=== PATIENT | male | born 1990 | race Caucasian/White ===

== ENCOUNTER 2022-07-10 14:35 | Emergency (ER) | payer OTHER ==
[~2022-07-10] VITALS: Ht 175.3 cm; Wt 86.2 kg
[2022-07-10 14:52] VITALS: BP 157/108
--- NOTE | 2022-07-10 14:52 | NUR ---
31 y/o male biba from home, c/o etoh withdrawals for 2 days. 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 c/o head, abd pain 06/21. pt states he fell last night mechanical fall and hit wall, woke up the next morning with nose bleeding. pt has colostomy bag, stool appears green, dark. pt states his stool normally looks like that when he eats blueberries. nose is currently not bleeding at this time. pmh: htn, diverticulitis allergy: bees med: denies
--- NOTE | 2022-07-10 14:52 | NUR ---
Note undone in EDM - 07/10/22 at 1610 by [email or web address] 31 y/o male biba from home, c/o etoh withdrawals for 2 days. 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 c/o head, abd pain 06/21. pt states he fell last night mechanical fall and hit wall, woke up the next morning with nose bleeding. pmh: htn, diverticulitis allergy: bees med: andrea
[2022-07-10] MEDS ORDERED: CLONIDINE HYDROCHLORIDE 0.1 MG TAB PO ONE (14:55)
[2022-07-10] MEDS ORDERED: KETOROLAC 30 MG/ML VIAL IVP ONE (14:55)
[2022-07-10] MEDS ORDERED: ONDANSETRON 4 MG/2 ML VIAL IVP ONE (14:55)
[2022-07-10] MEDS ORDERED: NACL 0.9% 1,000 ML IV ONE ×2 (14:55→16:35)
[2022-07-10] MEDS ORDERED: LORazepam 2 MG/ML VIAL IVP ONE ×4 (14:55→20:25)
[2022-07-10 15:33] LABS: BASOPHILS # (AUTO) 0.1 K/uL (0.00-0.22); BASOPHILS % (AUTO) 2.2 % (0.0-2.0); EOSINOPHILS # (AUTO) 0.1 K/uL (0-0.4); HEMATOCRIT 41.4 % (36-52); HEMOGLOBIN 14.1 g/dL (12.0-18.0); LYMPHOCYTES # (AUTO) 2.6 K/uL (2.0-11.5); LYMPHOCYTES % (AUTO) 47.5 % (20.5-51.1); MEAN CORPUSCULAR HEMOGLOBIN 29 pg (27-31); MEAN CORPUSCULAR HGB CONC 34 g/dL (33-37); MEAN CORPUSCULAR VOLUME 85.5 fL (80-94); MONOCYTES # (AUTO) 0.4 K/uL (0.8-1.0); MONOCYTES % (AUTO) 6.9 % (1.7-9.3); NEUTROPHILS # (AUTO) 2.3 K/uL (1.8-7.7); NEUTROPHILS % (AUTO) 41.4 % (42.2-75.2); PLATELET COUNT (AUTO) 309 K/uL (140-450); RED BLOOD CELL COUNT(AUTO) 4.85 MIL/uL (4.20-6.10); RED CELL DISTRIBUTION WIDTH 16.9 % (11.6-13.7); WHITE BLOOD COUNT (AUTO) 5.5 K/uL (4.8-10.8)
[2022-07-10 15:57] LABS: ALBUMIN 4.1 g/dL (3.4-5.0); ASPARTATE AMINOTRANSFERASE 43 U/L (15-37); CARBON DIOXIDE 22.9 mmol/L (21-32); CHLORIDE 105 mmol/L (98-107); CREATININE 0.8 mg/dL (0.6-1.3); GFR ARICAN-AMERICAN 145 mL/min (>90); GLUCOSE 141 mg/dL (74-106); POTASSIUM 3.9 mmol/L (3.5-5.1); SODIUM SERUM 144 mmol/L (136-145); TOTAL BILIRUBIN 0.7 mg/dL (0.0-1.0); UREA NITROGEN, BLOOD 16 mg/dL (7-18)
[2022-07-10] MEDS ORDERED: FOLIC ACID 5 MG, MULTIVITAMIN-12 10 ML in NACL 0.9% 1,000 ML IV ONE (16:05)
[2022-07-10] MEDS ORDERED: THIAMINE 200 MG/2 ML VIAL IM ONE (16:05)
[2022-07-10] MEDS ORDERED: MAG SULF 2000 MG/WATER PREMIX 50 ML IV ONE (16:05)
[2022-07-10 16:11] LABS: ACETAMINOPHEN < 0.5 ug/ml (10-30); SALICYLATE < 2.8 mg/dL (2.8-20.0)
[2022-07-10] MEDS ORDERED: MORPHINE SULFATE 4 MG/ML SYR IVP ONE (17:05)
[2022-07-10] MEDS ORDERED: METOCLOPRAMIDE 10 MG/2 ML INJ VIAL IVP ONE (17:05)
[2022-07-10] MEDS ORDERED: LORazepam 2 MG/ML VIAL ONE (18:29)
--- NOTE | 2022-07-10 19:21 | NUR ---
Report given to ZAIRA Bhatt for transfer of care.
--- NOTE | 2022-07-10 19:50 | NUR ---
Patient lying in bed, A/Ox4, chest rise and fall symmetrical, no c/o pain or s/s of discomfort, seizure pads/seizure precautions in place, CIWA scale 11, no seizures during shift.
--- NOTE | 2022-07-10 19:51 | NUR ---
Note undone in [facility] - 07/10/22 at 2111 by [id number] Patient lying in bed, A/Ox4, chest rise and fall symmetrical, no c/o pain or s/s of discomfort, seizure pads/seizure precautions in place. Addendum: 07/10/22 at 2101 by [email or web address] Amendment undone in [facility] - 07/10/22 at 2111 by [id number] Patient lying in bed, A/Ox4, chest rise and fall symmetrical, no c/o pain or s/s of discomfort, seizure pads/seizure precautions in place, CIWA scale 11.
--- NOTE | 2022-07-10 20:05 | NUR ---
Patient lying in bed, A/Ox4, chest rise and fall symmetrical, no c/o pain or s/s of discomfort, seizure pads/seizure precautions in place, CIWA scale 11. Addendum: 07/10/22 at 2111 by [email or web address] Patient lying in bed, A/Ox4, chest rise and fall symmetrical, no c/o pain or s/s of discomfort, seizure pads/seizure precautions in place, CIWA scale 11, no seizures during shift.
[2022-07-10 20:48] LABS: BENZODIAZEPINE, URINE POSITIVE ng/mL (NEG <=200); OPIATE, URINE POSITIVE ng/mL (NEG <=2000)
[2022-07-10 20:49] LABS: BARBITURATE, URINE NEGATIVE ng/ml (NEG <=200); CANNABINOID, URINE NEGATIVE ng/mL (NEG <=50); COCAINE, URINE NEGATIVE ng/mL (NEG <=300); PHENCYCLIDINE SCREEN,URINE NEGATIVE ng/mL (NEG <=25)
--- NOTE | 2022-07-10 20:49 | NUR ---
[facility] TRAN[facility]ORT AT BEDSIDE
--- NOTE | 2022-07-10 21:02 | NUR ---
Patient lying in bed, A/Ox4, chest rise and fall symmetrical, no c/o pain or s/s of discomfort, seizure pads/seizure precautions in place, CIWA scale 11. Addendum: 07/10/22 at 2111 by [email or web address] Patient lying in bed, A/Ox4, chest rise and fall symmetrical, no c/o pain or s/s of discomfort, seizure pads/seizure precautions in place, CIWA scale 11, no seizures during shift.
--- NOTE | 2022-07-10 21:03 | NUR ---
Patient to be transferred to [facility]. Is being transferred due to insurance reason. Receiving facility has accepting physician and available space. ER physician has signed transfer form. Patient or responsible alliance party has agreed to transfer and signed form. Patient belongings inventoried and will be sent with patient. Copy of nursing notes, lab reports, EKG, Physicians Orders and X-rays to be sent with patient. Report called to Ned MENESES at receiving facility. [facility] ambulance service has arrived for transfer. [facility] ambulance staff given report. [facility] ambulance staff verbalized understanding of report, no further questions. Addendum: 07/10/22 at 2118 by [email or web address] Patient to be transferred to [facility]. Is being transferred due to insurance reason. Receiving facility has accepting physician and available space. ER physician has signed transfer form. Patient or responsible alliance party has agreed to transfer and signed form. Patient belongings inventoried and will be sent with patient. Copy of nursing notes, lab reports, EKG, Physicians Orders and X-rays to be sent with patient. Report called to Ned MENESES at receiving facility. [facility] ambulance service has arrived for transfer. [facility] ambulance staff given report. [facility] ambulance staff verbalized understanding of report, no further questions. CIWA score at time of transfer is 11.
[2022-07-10 21:07] VITALS: BP 142/98
--- NOTE | 2022-07-10 21:15 | NUR ---
PT TAKEN BY [facility] TO [facility]
--- NOTE | 2022-07-12 09:44 | NUR ---
LATE ENTRY- IV NS DISCONTINUED AT 2114.
== END 2022-07-10 21:15 | disposition short-term general hospital (02) ==
LOC: MED 14:35
DX: F10.239 Alcohol dependence with withdrawal, unspecified (principal); Z20.822 Contact with and (suspected) exposure to COVID-19; K57.92 Diverticulitis of intestine, part unspecified, without perforation or abscess without bleeding; I10 Essential (primary) hypertension; Z79.899 Other long term (current) drug therapy
CPT/HCPCS: 36415; 70450; 80053; 80305; 83690; 85025; 87426; 93005; 96361; 96365; 96372; 96375; 96376; 99285; G0480; G0482; J1885; J2060; J2270; J2405; J2765; J3411; J3475; J7030